=== PATIENT | female | born 1975 | race Caucasian/White ===

== ENCOUNTER → 2022-11-12 13:57 | Outpatient (BNVA) | payer BC, SELFPAY | PROVIDERS: PCP Internal Medicine; Visit Provider Nurse Practitioner Family | DX: Z13.89 Encounter for screening for other disorder (principal) ==

== ENCOUNTER → 2023-02-04 15:08 | Outpatient (BNVA) | payer BC, SELFPAY | PROVIDERS: PCP Internal Medicine; Visit Provider Nurse Practitioner Family | DX: Z13.89 Encounter for screening for other disorder (principal) ==

== ENCOUNTER 2023-06-08 14:34 | Outpatient (AMB) | payer BC, SELFPAY ==
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
[2023-06-08 14:36] VITALS: BP 116/70; BMI 35.9
== END 2023-06-08 15:14 | disposition home or self-care (01) ==
PROVIDERS: Visit Provider Nurse Practitioner Family
DX: G43.109 Migraine with aura, not intractable, without status migrainosus (principal); M54.2 Cervicalgia; R41.89 Other symptoms and signs involving cognitive functions and awareness
CPT/HCPCS: 99214

== ENCOUNTER → 2023-06-08 14:34 | Outpatient (BNVA) | payer BC, SELFPAY | PROVIDERS: Visit Provider Nurse Practitioner Family ==

== ENCOUNTER 2023-12-14 14:24 | Outpatient (AMB) | payer BC, SELFPAY ==
[2023-12-14 14:30] VITALS: BP 124/80; PULSE 56; O2SAT 99; BMI 36.1
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
== END 2023-12-14 15:14 | disposition home or self-care (01) ==
LOC: HO.HSMS 14:24
PROVIDERS: PCP Internal Medicine; Visit Provider Nurse Practitioner Family
DX: G43.109 Migraine with aura, not intractable, without status migrainosus (principal)
CPT/HCPCS: 99213

== ENCOUNTER → 2023-12-14 14:24 | Outpatient (BNVA) | payer BC, SELFPAY | PROVIDERS: PCP Internal Medicine; Visit Provider Nurse Practitioner Family ==

== ENCOUNTER 2024-06-12 14:06 | Outpatient (AMB) | payer BC, SELFPAY ==
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
[2024-06-12 14:20] VITALS: BP 114/72; PULSE 52; O2SAT 98; BMI 37.0
== END 2024-06-12 15:01 | disposition home or self-care (01) ==
PROVIDERS: PCP Internal Medicine; Visit Provider Nurse Practitioner Family
DX: G43.109 Migraine with aura, not intractable, without status migrainosus (principal); M54.2 Cervicalgia
CPT/HCPCS: 99214

== ENCOUNTER → 2024-06-12 14:06 | Outpatient (BNVA) | payer BC, SELFPAY | PROVIDERS: PCP Internal Medicine; Visit Provider Nurse Practitioner Family ==

== ENCOUNTER 2024-10-24 13:31 | Outpatient (AMB) | payer BC, SELFPAY ==
[2024-10-24 13:37] VITALS: BP 118/72; PULSE 50; O2SAT 98; BMI 36.8
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
== END 2024-10-24 14:08 | disposition home or self-care (01) ==
LOC: HO.HSMS 13:31
PROVIDERS: PCP Internal Medicine; Visit Provider Nurse Practitioner Family
DX: G43.109 Migraine with aura, not intractable, without status migrainosus (principal); M54.2 Cervicalgia
CPT/HCPCS: 99214

== ENCOUNTER 2025-04-30 12:52 | Outpatient (AMB) | payer BC, SELFPAY ==
--- NOTE | 2025-04-30 13:05 | A.OFFVIS_ITS ---
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 Pt denies any significant interval medical changes, however pt reports increased stress r/t the recent sudden loss of her mother. In addition, she is still undergoing stress r/t her house repair as well as increased electric bills. Pt reports her migraine attacks have increased, which he attributes to the increased stress and not sleeping as well. Wonders if she should increase her topiramate from 1 to 2 tabs at night. 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 Using Nurtec prn w/ good effect. Baseline headache characteristics: Aura- May have unilateral (either left or right) roberto or colorful orbs w/ loss of peripheral vision. Mod-Severe (Normal headaches is 5/10 pain. Migraine is 10+/10 pain). Bifrontal, biltemporal, upper nose and eye stabbing pain. The pain is stabbing. Photophobia, phonophobia, allodynia, increased neck pain. No usual nausea. 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 H/O tubal ligation Family History Mother Breast cancer Father Lung cancer Hypertension Maternal Grandmother Pancreatic cancer Brother Hodgkin lymphoma Social History Alcohol intake: current Alcohol intake frequency: a few times a month Patient Tobacco Use Status: Never used Tobacco Physical Exam Vital Signs: Last Vital Signs Pulse 53 04/30/25 13:06 BP 128/72 04/30/25 13:06 Pulse Ox 98 04/30/25 13:06 Oxygen Delivery Method Room Air 04/30/25 13:06 BMI result Body Mass Index 37.2 Const General: cooperative and no acute distress Orientation/consciousness: patient oriented x3 Resp Effort & Inspection: normal respiratory effort and able to speak in complete sentences Neuro General: patient oriented x3 Cranial nerves: Yes CN's II-XII intact bilaterally Cognition (Neuro): normal cognition Psych Appearance: grossly normal Mental Status: mental status grossly normal Speech and movement: Normal speech and movement present Affect: normal affect Attitude: cooperative Assessment & Plan Assessment & Plan (1) Migraine with aura: Code(s): G43.109 - Migraine with aura, not intractable, without status migrainosus Category: Medical Qualifiers: Status migrainosus presence: without status migrainosus Intractability: not intractable Qualified Code(s): G43.109 - Migraine with aura, not intractable, without status migrainosus (2) Cervicalgia: Code(s): M54.2 - Cervicalgia Category: Medical Plan For overall headache and cognition management: Continue trying to optimize good self-care and stress management as able Future considerations- neuropsych evaluation, sleep evaluation. ? For acute headache treatment: Continue Rimegepant ODT 75mg qd prn at onset of headache (max 1 tab per day). May take w/ Tylenol. Previous acute migraine medication trials: Sumatriptan- not consistently effective. Acute migraine medication contraindications: NSAIDS d/t chronic anticoagulation. Triptans d/t HTN, HLD and Aortic stenosis. ? For headache prevention medication: Continue OTC Riboflavin 400mg qam. Continue OTC Magnesium 400mg qhs- may hold for loose stools. Increase Topiramate from 25 qhs to 50mg qhs. Previous migraine prevention medication trials: On Metoprolol for HTN. Migraine prevention medication contraindications: None at this time. ? Monitor cervicalgia: Continue to monitor. Future considerations: PT. ? f/u in 6 months or sooner prn Medications: Changed From topiramate 25 - 50 mg (1 - 2 x 25 mg) PO BEDTIME 30 days 60 tabs 6RF To topiramate 50 mg (2 x 25 mg) PO BEDTIME 60 tabs 6RF 30 days Coding Level of Care Code Est Pt Level 4 (18021) Diagnoses Migraine with aura and without status migrainosus, not intractable G43.109 Status migrainosus presence: without status migrainosus Intractability: not intractable Cervicalgia M54.2
[2025-04-30 13:06] VITALS: BP 128/72; PULSE 53; O2SAT 98; BMI 37.2
--- OUTSIDE RECORDS SUMMARY | 2025-04-30 13:54 | XMS_ITS | Clinical Summary ---
Author Organization [facility] Address [address] [place] [phone] Phone Care Team Providers Care Hydrator Operator Name Role Phone Carla Hannah MD Primary Care Provider [phone] Allergies No known active allergies Medications aspirin 81 MG EC tablet 1 tablet Active atorvastatin (LIPITOR) 40 MG tablet take 1 tablet by mouth once daily 04/14/20 18 Active escitalopram oxalate (LEXAPRO) 20 MG tablet Take 20 mg by mouth. Active levonorgestrel (MIRENA) 20 mcg/24 hr (5 years) intrauterine device by Intrauterine route. Active metFORMIN (GLUCOPHAGE) 500 MG tablet TAKE 1 TABLET BY MOUTH ONCE DAILY WITH BREAKFAST 04/14/20 18 Active metoprolol succinate (TOPROL-XL) 25 MG 24 hr tablet TAKE 1 TABLET BY MOUTH ONCE A DAY 06/28/20 17 Active OXcarbazepine (TRILEPTAL) 300 MG tablet Take 300 mg by mouth. Active SENNA, WITH SUGAR, ORAL 2 tablets. Active biotin 300 mcg Tab Take 1,000 mcg by mouth daily. Active cyanocobalamin (VIT B-12) 1000 MCG tablet Take 100 mcg by mouth daily. Active warfarin (COUMADIN) 2 MG tablet Maintenance plan:6 mg every Tue; 8 mg all other days 01/01/20 21 Active amoxicillin (AMOXIL) 500 MG capsule Take 2,000 mg by mouth. 05/19/20 22 Active ferrous furamate 324 mg (106 mg elemental) Tab Take 1 tablet by mouth daily. Active topiramate (TOPAMAX) 25 MG capsule Take 25 mg by mouth daily. Active magnesium oxide 250 mg (150 mg elemental) Tab Take 250 mg by mouth daily. Active riboflavin, vitamin B2, (,VITAMIN B-2,) 25 mg Tab Take 100 mg by mouth daily. Active NURTEC ODT 75 mg tablet TAKE 1 TABLET BY MOUTH EVERY OTHER DAY AND NEEDED FOR MIGRAINE 07/17/20 23 Active dextromethorphan (DELSYM) 30 mg/5 mL liquid Take 10 mL (60 mg total) by mouth daily. 89 mL 09/16/20 24 Active flunisolide 25 mcg (0.025 %) [place] 2 sprays by Nasal route. 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 Chronic anticoagulation 07/31/2017 Encounters Date Type Department Care Team Description 04/24/2025 2:40 PM EDT Office Visit [facility] [address] [place] [address] [place] [address] Carla Hannah MD Aortic valve disorder [I35.9] (Primary Dx); Aortic valve replaced; Chronic anticoagulation 03/27/2025 1:20 PM EDT Office Visit [facility] [address] [place] [address] [place] [address] Carla Hannah MD Aortic valve disorder [I35.9] (Primary Dx); Aortic valve replaced; Chronic anticoagulation 03/07/2025 Telephone [facility] Clinic [address] [place] [phone] Arminda Almeida, RN Appointment 02/27/2025 1:20 PM EDT Office Visit [facility] [address] [place] [address] [place] [address] Carla Hannah MD Aortic valve disorder [I35.9] (Primary Dx); Aortic valve replaced; Chronic anticoagulation 02/20/2025 Telephone [facility] [address] [place] [address] [place] [address] Arminda Almeida, RN from Last 3 Months Family History Medical History Relation Comments Cancer Father 2 Hypertension Father 2 Cancer Maternal Grandmother 2 Cancer Mother 2 Cancer Sibling 2 Relation Status Comments Father 1 Father 2 Maternal Grandmother 1 Maternal Grandmother 2 Mother 1 Mother 2 Sibling 1 Sibling 2 Social History Tobacco Use Types Packs/Day Years Used Date Smoking Tobacco: Never Smokeless Tobacco: Never Alcohol Use Standard Drinks/Week Comments No 0 (1 standard drink = 0.6 oz pur e alcohol) Education Answer Date Recorded Are you interested in more education? Not on job e 02/08/2023 Are you concerned about learning? Not on file 02/08/2023 No 02/08/2023 No 02/08/2023 Digital Access Answer Date Recorded No 03/02/2023 No 03/02/2023 Reliable internet access at home? Not on file 03/02/2023 Device with a working camera? Not on file Intimate Partner Violence Answer Date R ecorded Are you denied basic needs s uch as food, clothing, or medical care? No 09/16/2024 In the past 12 months have y ou been in a relationship with a person who hurts, threatens, or tries to control you? No 09/16/2024 Are you denied basic needs s uch as food, clothing, or medical care? No 09/16/2024 In the past 12 months have y ou been in a relationship with a person who hurts, threatens, or tries to control you? No 09/16/2024 Comments No Sex and Gender Information Value Date Recorded Sex Assigned at Female 10/12/2018 1:40 PM EST Legal Sex Female 5:20 PM EST Gender Identity Female 10/12/2018 1:40 PM EST Sexual Orientation Straight 10/12/2018 1: 40 PM EST Last Filed Vital Signs Vital Sign Reading Time Taken Comments Blood Pressure 133/75 09/16/2024 10:47 PM EST Pulse 58 09/16/2024 10:47 PM EST Temperature 36.6 C (97.9 F) 09/16/2024 10:47 PM EST Respiratory Rate 18 09/16/2024 10:47 PM EST Oxygen Saturation 99% 09/16/2024 10:47 PM EST Inhaled Oxygen Concentration - - Weight 82.1 kg (181 lb) 09/16/2024 4:17 PM EST Height 149.9 cm (4' 11 ) 09/16/2024 4:17 PM EST Body Mass Index 36.56 09/16/2024 4:17 PM EST Plan of Treatment Upcoming Encounters Date Type Department Care Team (Late st Contact Info) Description 05/21/2025 1:40 PM EDT Office Visit [facility] Clinic [address] [place] [address] Carla Hannah MD [address] [place] [address] Health Maintenance Due Date Last Done Comments DEPRESSION SCREENING 1985 HEPATITIS C SCREENING 1991 HIV ONE-TIME SCREENING (18-65 YEARS) 1991 PAP SMEAR 10/15/2013 10/15/2010 COLOGUARD 2018 COLONOSCOPY 2018 COLORECTAL CANCER SCREENING 2018 FIT TEST 2018 FOBT 2018 SIGMOIDOSCOPY 2018 VIRTUAL COLONOSCOPY 2018 Adult Td,Tdap Booster 06/16/2021 06/16/2011 PNEUMOCOCCAL VACCINES (50+ years) (1 of 1 - PCV) 2023 ZOSTER VACCINES (1 of 2) 2023 COVID-19 VACCINE (3 - 2023- season) 2024 11/02/2020, 10/12/2020 CREATININE LEVEL 09/16/2025 09/16/2024, 10/12/2018 MAMMOGRAM 11/14/2025 11/14/2023, 10/2022, 11/05/2021, Additional history exists SCREENING FOR DIABETES 09/16/2027 09/16/2024 LIPID PANEL 03/28/2030 03/28/2025, 08/11, 08/10/2023, Additional history exists SMOKING STATUS SCREENING (Once After 26 Yrs) Completed 10/18/2023 HEPATITIS A VACCINES Aged Out No long er eligible based on patient's age to complete this topic HIB VACCINES Aged Out No longer eligi ble based on patient's age to complete this topic MENINGOCOCCAL VACCINES (ACWY) Aged Out No longer eligible based on patient's age to complete this topic MENINGOCOCCAL VACCINES (B) Aged Out N o longer eligible based on patient's age to complete this topic Medical Devices Not on file Procedures Procedure Name Priority Date/Time Associated Diagnosis Comments POCT INR Routine 04/24/2025 2:43 PM EDT POCT INR Routine 03/27/2025 1:23 PM EDT POCT INR Routine 02/27/2025 1:21 PM EDT BASIC METABOLIC PANEL STAT 09/16/2024 4:44 PM EST from Last 3 Months or Most Recently Relevant to Health Maintenance Results * (ABNORMAL) Poct INR (04/24/2025 2:43 PM EDT) Only the most recent of3 resultswithin the time period is included. INR 2.0(H) 0.86 - 1.17 [facility] Comment:Therapeutic Range 2. 0-3.5 04/24/2025 2:43 PM EDT 04/24/2025 2:44 PM EDT Carla Hannah MD POINT OF CARE TEST ORDERABLES nal Result [facility] [address] [place] [address] * (ABNORMAL) Basic metabolic panel (09/16/2024 4:44 PM EST) Pathologist [facility] [place] SODIUM 138 133 - 146 mmol/L [facility] CHLORIDE 105 96 - 108 mmol/L [facility] POTASSIUM 4.4 3.3 - 5.1 mmol/L [facility] CO2 27 21 - 35 mmol/L [facility] BUN 15 6 - 19 mg/dL [facility] CREATININE 0.70 0.5 - 1.5 mg/dL [facility] GLUCOSE 119(H) 70 - 99 mg/dL [facility] CALCIUM 8.9 8.4 - 10.3 mg/dL [facility] EGFR 105 >59 mL/min/1.7 3m2 [facility] Comment:Estimated glomerular filtration rate calculated using the CKD-EPI refit equation. ANION GAP 10 10 - 20 mmol/L [facility] Blood 09/16/2024 4:44 PM EST 09/16/2024 4:47 PM EST us Curz Marin MD LAB BLOOD ORDERABLES Final Resul t Performing Organization Address City/State/[facility] Co de Phone Number [address] [address] from Last 3 Months or Most Recently Relevant to Health Maintenance Insurance OUT OF [facility] POS BLUE CROSS OUT OF STATE POS CROSS OUT OF STATE POS BLUE CROSS OUT OF STATE POS Care Teams Hydrator Operator Relationship Specialty Start Date End Date Carla Hannah MD [address] [place] [address] PCP - General Internal Medicine 07/13/22 Additional Source Comments The information contained in this document represents components of the legal health record. It is not the complete legal health record.[facility]
--- OUTSIDE RECORDS SUMMARY | 2025-04-30 13:54 | XMS_ITS | Clinical Summary ---
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 Active riboflavin (VITAMIN B2) 400 mg tablet Take 1 tablet (400 mg total) by mouth 1 (one) time each day. Active topiramate (TOPAMAX) 25 mg tablet TAKE 1 TO 2 TABLETS BY MOUTH AT BEDTIME 3 Active magnesium oxide 250 mg magnesium tablet Take 1 tablet (250 mg total) by mouth. Active ferrous fumarate 324 mg (106 mg iron) tablet Take 1 tablet by mouth 1 (one) time each day. Active amoxicillin (AMOXIL) 500 mg capsule Take 4 Capsules by mouth Once. She gets these through her dentist's office prior to procedures. 2 Active escitalopram (LEXAPRO) 20 mg tablet Take 1 tablet (20 mg total) by mouth 1 (one) time each day. Active cyanocobalamin (VITAMIN B-12) 100 mcg tablet Take 10 tablets (1,000 mcg total) by mouth 1 (one) time each day. Active levonorgestreL (MIRENA) 21 mcg/24hr (up to 8 yrs) 52 mg IUD by intrauterine route. Active aspirin 81 mg chewable tablet Chew 1 tablet (81 mg total) 1 (one) time each day. Active sennosides (SENNA ORAL) 2 Tabs by Does not apply route at bedtime. Active Nurtec 75 mg dispersible tablet Take 1 tablet (75 mg total) by mouth 1 (one) time each day if needed. Active methocarbamoL (ROBAXIN) 500 mg tablet Take 1 tablet (500 mg total) by mouth 3 (three) times a day. 4 Active biotin 1,000 mcg tablet,chewable Chew 1,000 mcg 1 (one) time each day. 4 Active metFORMIN (GLUCOPHAGE) 500 mg tablet TAKE 1 TAB BY MOUTH EVERY DAY WITH BREAKFAST. 90 tablet 1 5 Active metoprolol succinate (TOPROL-XL) 25 mg 24 hr tabletIndicatio ns:Presence of prosthetic heart valve TAKE 1 TABLET BY MOUTH EVERY DAY 90 tablet 5 Active warfarin (COUMADIN) 2 mg tabletIndicatio ns:halfway (current) use of anticoagulants, Presence of prosthetic heart valve TAKE 4-5 TABLETS BY MOUTH DAILY DIRECTED BY THE CLINIC, MAY CAUSE HEAVY BLEEDING. TAKE AT SAME TIME EVERY DAY. DO NOT CHANGE DIETARY HABITS. 360 tablet 1 5 Active atorvastatin (LIPITOR) 40 mg tablet TAKE 1 TABLET BY MOUTH EVERY DAY 90 tablet 1 5 Active Active Problems Problem Noted Date Diagnosed Date Status post aortic aneurysm repair 03/28/2025 H/O mechanical aortic valve replacement 03/28/20 25 Assessment & Plan (03/28/2025 11:00 AM EDT): She is utilizing the warfarin with good effect. Will need to remain on this lifetime. Denies any abnormal bleeding. Sounds good on exam. Will update echocardiogram. Hypertension 03/28/2025 Assessment & Plan (03/28/2025 10:59 AM EDT): Well-controlled the appointment today. We are reducing the metoprolol dosage to 12.5 mg p.o. daily because of the patient's increase in dizziness. Dizziness 03/28/2025 Assessment & Plan (03/28/2025 11:00 AM EDT): She is reporting an increase in dizziness especially after changing positions. 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 Her heart rate is 52 at the appointment today, I am going to be reducing her metoprolol dosage down to 12.5 mg p.o. daily. I would like her to reach out in a week to let us know if she is having any decrease in dizziness symptoms. Of note she also has history of migraines and dizziness and is going to be seeing her neurologist within the next month. 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 She plans to go get her lipid profile updated today as ordered by her PCP team. Continue statin Assessment & Plan (03/28/2025 10:58 AM EDT): Recently well-controlled. Patient is utilizing 40 mg of atorvastatin. Her PCP has put in labs, I would like her LDL to be under 100. Migraine 07/30/2024 PCOS (polycystic ovarian syndrome) 07/30/2024 TIA (transient ischemic attack) 07/30/2024 Overview (07/30/2024): May 2016 she has bladder surgery and was bridged to Lovenox and off AC for <36 hours, but she had a TIA with resolution of symptoms after 24 hours. Weight gain 07/30/2024 Snoring 01/04/2022 Overview (07/30/2024): 12/2021 Home Sleep Study did not reveal sleep apnea or nocturnal hypoxia. COVID-19 virus infection 05/04/2020 Reactive airway disease 05/02/2018 Constipation 07/01/2011 Iron deficiency anemia 06/22/2011 Encounters Date Type Department Care Team Description 03/28/2025 10:40 AM EDT Office Visit [facility] [address] [facility] [address] [place] [id number] Raghu Leal NP Hyperlipidemia, unspecified hyperlipidemia type (Primary Dx); Status post aortic aneurysm repair; H/O mechanical aortic valve replacement; Hypertension, unspecified type; Dizziness 03/01/2025 2:30 PM EDT Office Visit Adult Medicine [address] [phone] Jailene Alonso MD PE (physical exam), annual (Primary Dx); Need for vaccination against Streptococcus pneumoniae; Tongue lesion from Last 3 Months Immunizations Name Administration Dates Next Due COVID-19 (Moderna/Spikevax) 12yo and older 07/16/2022 Hepatitis B Pediatric (Enger ix B; Recombivax HB) to less than 20 yo 05/29/2004,11/29/2003,11/01/2003 Influenza Quadravalent, MDCK , 0.5ml, preservative free (Flucelvax) 6mo and older 07/12/2023,07/23/2022 Influenza trivalent, 0.5mL, preservative free (Fluarix; FluLaval; Fluzone) ages 6mo and older (Afluria) 3 years and older 07/07/2021,07/07/2020,06/06/2019,07/04,06/30/2017,06/15/2016,07/24/2014 ,07/24/2013,07/26/2012,06/16/2011 MMR, measles mumps and rubel la Live (Priorix; M-M-R II) 12mo and older 11/01/2003 PPD Test 10/27/2016 Pfizer Covid-19 Bivalent, Or iginal + Ba.1 (Non-US Trademark [employer] Bivalent) 07/16/2022 Pneumococcal conjugate 20 va lent (Prevnar 20, PCV 20) 2mo and older 03/01/2025 Pneumococcal polysaccharide 23 valent (Pneumovax 23) 2yo and older 06/16/2011 TD, Adsorbed, Preservative Free 11/01/2003 Td Tetanus diptheria (Tdvax) 7yo and older 11/20/2021 Tdap Tetanus diptheria acell ular pertussis (Boostrix; Adacel) 7yo and older 06/16/2011 Zoster recombinant (Shingrix ) 19yo and older 12/09/2023,09/13/2023 Surgical History Surgery Date Site/Laterality Comments OTHER SURGICAL HISTORY 02/2011 PROCEDURE: MAMMOGRAM; COMMENT: 09/2014 TUBAL LIGATION 2001 PROCEDURE: HISTORICAL TUBAL LIGATION OTHER SURGICAL HISTORY 02/17 PROCEDURE: NUCLEAR STRESS TEST; COMMENT: negative OTHER SURGICAL HISTORY 09/27/2013 PROCEDURE: REPLACE AORTIC VALVE OPEN TRANSTHORACIC APPROACH; COMMENT: Dr Pierre CERVICAL BIOPSY W/ LOOP ELECTRODE EXCISION PROCEDURE: UT CONIZATION CERVIX W/WO D&C RPR ELTRD EXC; COMMENT: about age 19 OTHER SURGICAL HISTORY 05/2016 PROCEDURE: UT LAPAROSCOPY SLING OPERATION STRESS INCONT; COMMENT: Mesh sling; Dr Coughlin Medical History Medical History Date Comments Aortic stenosis DX:Aortic stenos is; COMMENT: congenital, s/p AVR 09/21 Depression DX:Depression; C OMMENT: service 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 Anxiety DX:Anxiety Anemia DX:Anemia; COMME NT: iron def in past PCOS (polycystic ovarian syndrome) DX:PCOS (polycystic ovarian syndrome) Eczema DX:Eczema Abnormal Pap smear of cervix DX: Abnormal Pap smear of cervix; COMMENT: age 18 Migraine DX:Migraine; COM MENT: rare since repair of heart Hyperlipidemia DX:Hyperlipidemi a Cervicocranial syndrome DX:Cervi cocranial syndrome Ectopic kidney DX:Ectopic kidne y; COMMENT: left Weight gain DX:Weight gain Chronic constipation DX:Chronic constipation Stress incontinence DX:Stress in continence; COMMENT: resolved with sling TIA (transient ischemic attack) DX:TIA (transient ischemic attack); COMMENT: May 2016 she has bladder surgery and was bridged to Lovenox and off AC for <36 hours, but she had a TIA with resolution of symptoms after 24 hours. Family History Medical History Relation Name Comments Hypertension Father lung cancer Lung cancer Father smoker Other: pancreatic cancer Maternal Grandmother Breast cancer Mother 40 premenopausal; comprehensive BRCA negative Colon cancer Neg Hx Ovarian cancer Neg Hx Pancreatic cancer Neg Hx Prostate cancer Neg Hx Uterine cancer Neg Hx Relation Name Status Comments Brother 1 Alive hodgkins Brother 2 Alive Father lung ca Maternal Grandfather unknown Maternal Grandmother pancrea s Mother 40 breast ca, rt b reast, pre menopausal, Paternal Grandfather unknown Paternal Grandmother unknown Son 1 Alive Son 2 Alive Son 3 Alive Social History Tobacco Use Types Packs/Day Years Used Date Smoking Tobacco: Never Passive Smoke Exposure: Past Smokeless Tobacco: Never Alcohol Use Standard Drinks/Week Comments Yes 0.8 (1 standard drink = 0.6 oz p ure alcohol) Housing Instability Answer Date Recorde d Are you worried that in the next 2 months you may not have stable housing? No 03/01/2025 Food Access & Nutrition Answer Date Rec orded Do you have access to a vari ety of food including fruits and vegetables? No 03/01/2025 Health Literacy Answer Date Recorded How often do you need to hav e someone help you when you read instructions, pamphlets, or other written material from your doctor or pharmacy? Never 03/01/2025 Caregiver: How often do you need to have someone help you when you read instructions, pamphlets, or other written material from your doctor or pharmacy? Not on file 03/01/2025 Financial Risk Answer Date Recorded How hard is it for you to pa y for the very basics like food, housing, medical care, and air conditioning / heating? Not very hard 03/01/2025 Transportation Answer Date Recorded Has the lack of transportati on kept you from meetings, work, or from getting things needed for daily living? No Has the lack of transportati on kept you from medical appointments or from getting medications? No 03/01/2025 Social Isolation Answer Date Recorded How often do you feel lonely or isolated from th ose around you? Never 03/01/2025 Food Risk Answer Date Recorded Within the past 12 months we worried whether our food would run out before we got money to buy more. Never true 03/01/2025 Within the past 12 months th e food we bought just didn't last and we didn't have money to get more. Never true 03/01/2025 Dependent Care Answer Date Recorded Do you need help finding or paying for care for your loved ones. For example, residential child care counselor or elderly care for an older adult? No 03/01/2025 Education Answer Date Recorded Do you think completing more education or training, like finishing a GED, going to college, or learning a trade, would be helpful for you? No 03/01/2025 Employment and Income Answer Date Recor ded During the last four weeks, have you been actively looking for work? No 03/01/2025 Living Situation Answer Date Recorded What is your living situation? 0 03/01/2025 Comments No Sex and Gender Information Value Date Recorded Sex Assigned at Not on file Legal Sex Female 6:39 AM EST Gender Identity Not on file Sexual Orientation Not on file Obstetrics History Last Filed Vital Signs Vital Sign Reading Time Taken Comments Blood Pressure 110/60 03/28/2025 10:34 AM EDT Pulse 52 03/28/2025 10:34 AM EDT Temperature 36.6 C (97.8 F) 03/01/2025 2:27 PM EDT Respiratory Rate 14 03/01/2025 2:27 PM EDT Oxygen Saturation 97% 03/28/2025 10:34 AM EDT Inhaled Oxygen Concentration - - Weight 83.6 kg (184 lb 6.4 oz) 03/28/2025 10:34 AM EDT Height 149.9 cm (4' 11 ) 03/28/2025 10:34 AM EDT Body Mass Index 37.24 03/28/2025 10:34 AM EDT Plan of Treatment Upcoming Encounters Date Type Department Care Team (Late st Contact Info) Description 05/01/2025 1:50 PM EDT Appointment Radiology Department - [address] [phone] 07/03/2025 2:30 PM EDT Office Visit [facility] [address] [phone] Jailene Alonso MD [address] [place] [address] 07/09/2025 12:30 PM EDT Ancillary Procedure [facility] - [address] [place] [address] Health Maintenance Due Date Last Done Comments Hepatitis B Vaccines (1 of 3 - 19+ 3-dose series) 1992 05/29/2004, 11/29/2003, 11/01/2003 Influenza Vaccine (#1) 2025 4, 07/12/2023, 07/23/2022, Additional history exists Breast Cancer Screening 11/14/2025 11/14/19 24, 11/10/2022, 11/05/2021, Additional history exists Social Influencers of Health Screening 03/01/2026 03/01/2025 Hypertension/CHF/CAD Annual BMP Blood Test 03/28/2026 03/28/2025, 01/30/2024 Colorectal Cancer Screening: FIT-DNA (Cologuard) 08/12/2026 08/12/2023, 08/11/2023 Cervical Cancer Screening: HPV 05/17/2027 05/17/2022 Cholesterol Screening (Lipid Panel) 03/28/2030 03/28/2025, 08/29/2024, 08/10/2023 DTaP,Tdap,and Td Vaccines (3 - Td or Tdap) 11/20/2031 11/20/2021, 06/16/2011, 11/01/2003 MMR Vaccines Aged Out 11/01/2003 No longer eligi ble based on patient's age to complete this topic HIV Screening Completed 09/09/2014 Hepatitis C Screening Completed 09/09/2014 Zoster Vaccines Completed 12/09/2023, 09/13/2023 COVID-19 Vaccine Completed 07/16/2024, 02/2023, 07/16/2022, Additional history exists Depression Screening Completed 03/01/2025 Pneumococcal Vaccine: 50+ Years Completed 03/01/2025, 06/16/2011 HIB Vaccines Aged Out No longer eligi ble based on patient's age to complete this topic HPV Vaccines Aged Out No longer eligi ble based on patient's age to complete this topic Hepatitis A Vaccines Aged Out No long er eligible based on patient's age to complete this topic IPV Vaccines Aged Out No longer eligi ble based on patient's age to complete this topic Meningococcal ACWY Vaccine Aged Out N o longer eligible based on patient's age to complete this topic Meningococcal B Vaccine Aged Out No l onger eligible based on patient's age to complete this topic RSV Immunization Patients Under 20 months Aged Out No longer eligible based on patient's age to complete this topic Varicella Vaccines Aged Out No longer eligible based on patient's age to complete this topic Procedures Procedure Name Priority Date/Time Associated Diagnosis Comments CBC WITH AUTO DIFFERENTIAL Routine 03/28/2025 11:27 AM EDT PE (physical exam), annual CBC AND DIFFERENTIAL Routine 03/28/2025 11:27 AM EDT PE (physical exam), annual COMPREHENSIVE METABOLIC PANEL Routine 03/28/2025 11:27 AM EDT PE (physical exam), annual LIPID PANEL WITH REFLEX TO DIRECT LDL Routine 03/28/2025 11:27 AM EDT PE (physical exam), annual HEMOGLOBIN A1C Routine 03/28/2025 11:27 AM EDT PE (physical exam), annual ECG 12-LEAD Routine 03/28/2025 11:00 AM EDT Status post aortic aneurysm repair SCREENING MAMMOGRAPHY BI 2-VIEW BREAST INC CAD Routine 11/14/2023 1:48 PM EST Encounter for screening mammogram for malignant neoplasm of breast EXTERNAL COLOGUARD (FIT-DNA) REPORT Routine 08/12/2023 4:06 PM EDT HM HPV Routine 05/17/2022 HEPATITIS C SCREENING Routine 09/09/2014 HIV SCREENING Routine 09/09/2014 from Last 3 Months or Most Recently Relevant to Health Maintenance Results * Lipid panel with reflex to direct LDL (03/28/2025 11:27 AM EDT) Pathologist [facility] Cholesterol 161 0 - 200 mg/dL LAB CHEMISTRY METHOD 03/28/2025 3:51 PM EDT [facility] Triglycerides 67 0 - 150 mg/dL LAB CHEMISTRY METHOD 03/28/2025 3:51 PM EDT [facility] HDL 67 >=40 mg/dL LAB CHEMISTRY METHOD 03/28/2025 3:51 PM EDT [facility] LDL Calculated 81 0 - 100 mg/dL LAB CHEMISTRY METHOD 03/28/2025 3:51 PM EDT [facility] VLDL Cholesterol Albino 13.4 mg/dL LAB CHEMISTRY METHOD 03/28/2025 3:51 PM EDT [facility] Non HDL Chol. (LDL+VLDL) 94 <145 mg/dL LAB CHEMISTRY METHOD 03/28/2025 3:51 PM EDT [facility] Chol/HDL Ratio 2.4 0.0 - 4.4 LAB CHEMISTRY METHOD 03/28/2025 3:51 PM EDT [facility] Blood Venous blood specimen / Unknown Venipuncture / Unknown 03/28/2025 11:27 AM EDT 03/28/2025 11:27 AM EDT us Jailene Alonso MD LAB BLOOD ORDERABLES Final Resul t [facility] [address] [place] [address], * (ABNORMAL) CBC auto differential (03/28/2025 11:27 AM EDT) [facility] WBC 7.1 4.8 - 10.8 K/mcL LAB HEMETOLOGY METHOD 03/28/2025 3:21 PM EDT [facility] RBC 4.30 3.80 - 4.80 M/mcL LAB HEMETOLOGY METHOD 03/28/2025 3:21 PM EDT [facility] Hemoglobin 12.6 11.5 - 16.0 g/dL LAB HEMETOLOGY METHOD 03/28/2025 3:21 PM EDT [facility] Hematocrit 40.7 35.0 - 47.0 % LAB HEMETOLOGY METHOD 03/28/2025 3:21 PM [facility] MCV 94.7 79.0 - 98.0 FL LAB HEMETOLOGY METHOD [facility]25 [facility] MCH 29.3 27.0 - 32.0 pcg LAB HEMETOLOGY METHOD 03/28/2025 3:21 PM [facility] MCHC 31.0(L) 32.0 - 37.0 g/dL LAB HEMETOLOGY METHOD 03/28/2025 3:21 PM [facility] RDW 13.9 11.0 - 15.0 % LAB HEMETOLOGY METHOD 03/28/2025 3:21 PM [facility] Platelets 297 130 - 400 K/mcL LAB HEMETOLOGY METHOD 03/28/2025 3:21 PM [facility] MPV 11.7(H) 7.0 - 11.0 FL LAB HEMETOLOGY METHOD 03/28/2025 3:21 PM [facility] NRBC 0.0 <1.0 % LAB HEMETOLOGY METHOD 03/28/2025 3:21 PM [facility] NRBC Absolute 0.00 <0.10 K/mcL LAB HEMETOLOGY METHOD 03/28/2025 3:21 PM [facility] Neutrophils Relative 60.0 % LAB HEMETOLOGY METHOD 03/28/2025 3:21 PM [facility] Lymphocytes Relative 25.3 % LAB HEMETOLOGY METHOD 03/28/2025 3:21 PM [facility] Monocytes Relative 10.4 % LAB HEMETOLOGY METHOD 03/28/2025 3:21 PM EDT [facility] Eosinophils Relative 3.2 % LAB HEMETOLOGY METHOD 03/28/2025 3:21 PM EDT [facility] Basophils Relative 0.7 % LAB HEMETOLOGY METHOD 03/28/2025 3:21 PM [facility] Immature Granulocytes Relative 0.4 % LAB HEMETOLOGY METHOD 03/28/2025 3:21 PM EDT [facility] Neutrophils Absolute 4.26 1.50 - 7.00 K/mcL LAB HEMETOLOGY METHOD 03/28/2025 3:21 PM EDT [facility] Lymphocytes Absolute 1.80 1.00 - 5.00 K/mcL LAB HEMETOLOGY METHOD 03/28/2025 3:21 PM [facility] Monocytes Absolute 0.74 0.20 - 1.00 K/mcL LAB HEMETOLOGY METHOD 03/28/2025 3:21 PM EDT [facility] Eosinophils Absolute 0.23 0.00 - 0.50 K/mcL LAB HEMETOLOGY METHOD 03/28/2025 3:21 PM EDT [facility] Basophils Absolute 0.05 0.00 - 0.20 K/mcL LAB HEMETOLOGY METHOD 03/28/2025 3:21 PM T [facility] Immature Granulocytes Absolute 0.03 0.00 - 0.03 K/mcL LAB HEMETOLOGY METHOD 03/28/2025 3:21 PM T [facility] Blood Venous blood specimen / Unknown Venipuncture / Unknown 03/28/2025 11:27 AM EDT 03/28/2025 11:27 AM EDT us Jailene Alonso MD LAB BLOOD ORDERABLES Final Resul t [facility] [address] [place] [address], [place] [phone] * Hemoglobin A1c (03/28/2025 11:27 AM EDT) [facility] Hemoglobin A1C 5.6 <6.5 % LAB CHEMISTRY METHOD 03/28/2025 8:35 PM T [facility] Mean Bld Glu Estim. 114 mg/dL LAB CHEMISTRY METHOD 03/28/2025 8:35 PM [facility] Blood Venous blood specimen / Unknown Venipuncture / Unknown 03/28/2025 11:27 AM EDT 03/28/2025 11:27 AM EDT Jailene Alonso MD LAB BLOOD ORDERABLES Final Resul t [facility] [address] [place] [address], * Comprehensive metabolic panel (03/28/2025 11:27 AM EDT) [facility] Sodium 137 133 - 145 mmol/L LAB CHEMISTRY METHOD 03/28/2025 3:51 PM [facility] Potassium 4.3 3.5 - 5.5 mmol/L LAB CHEMISTRY METHOD 03/28/2025 3:51 PM [facility] Chloride 107 96 - 110 mmol/L LAB CHEMISTRY METHOD 03/28/2025 3:51 PM [facility] CO2 26 21 - 32 mmol/L LAB CHEMISTRY METHOD 03/28/2025 3:51 PM [facility] Anion Gap 4 3 - 11 LAB CHEMISTRY METHOD 03/28/2025 3:51 PM [facility] Glucose 83 70 - 100 mg/dL LAB CHEMISTRY METHOD 03/28/2025 3:51 PM [facility] BUN 15 5 - 25 mg/dL LAB CHEMISTRY METHOD 03/28/2025 3:51 PM [facility] Creatinine 0.72 0.50 - 1.10 mg/dL LAB CHEMISTRY METHOD 03/28/2025 3:51 PM [facility] eGFR 101 >=60 mL/min/1. 73m2 LAB CHEMISTRY METHOD 03/28/2025 3:51 PM [facility] Comment:Calculation based on the Chronic Kidney Disease Epidemiology Collaboration (CKD-EPI) equation refit without adjustment for race. BUN/Creatinine Ratio 20.8 LAB CHEMISTRY METHOD 03/28/2025 3:51 PM [facility] Calcium 9.0 8.5 - 10.5 mg/dL LAB CHEMISTRY METHOD 03/28/2025 3:51 PM [facility] AST (SGOT) 15 10 - 42 unit/L LAB CHEMISTRY METHOD 03/28/2025 3:51 PM [facility] ALT (SGPT) 18 10 - 60 unit/L LAB CHEMISTRY METHOD 03/28/2025 3:51 PM [facility] Alkaline Phosphatase 88 42 - 121 unit/L LAB CHEMISTRY METHOD 03/28/2025 3:51 PM [facility] Total Protein 7.0 6.0 - 8.0 g/dL LAB CHEMISTRY METHOD 03/28/2025 3:51 PM [facility] Albumin 3.8 3.2 - 5.0 g/dL LAB CHEMISTRY METHOD 03/28/2025 3:51 PM [facility] Total Bilirubin 0.3 0.0 - 1.4 mg/dL LAB CHEMISTRY METHOD 03/28/2025 3:51 PM [facility] Blood Venous blood specimen / Unknown Venipuncture / Unknown 03/28/2025 11:27 AM EDT 03/28/2025 11:27 AM EDT us Jailene Alonso MD LAB BLOOD ORDERABLES Final Resul t [facility] [address] [place] [address], [place] [phone] * ECG 12 lead (03/28/2025 11:00 AM EDT) Ventricular Rate ECG 52 BPM GEMUSE Atrial Rate 52 BPM GEMUSE P-R Interval 204 ms GEMUSE QRS Duration 94 ms GEMUSE Q-T Interval 452 ms GEMUSE QTc 420 ms GEMUSE P Wave Duff 42 degrees GEMUSE R Duff 79 degrees GEMUSE T Duff 83 degrees GEMUSE ECG Interpretation Sinus bradycardia with Premature atrial complexes Otherwise normal ECG Confirmed by LIZBET VELIZ ([id number]) on 04/18/2025 3:12:48 PM GEMUSE 03/28/2025 10:3 9 AM EDT 04/18/2025 3:12 PM EDT Raghu Leal NP ECG ORDERABLES Edited Result - Final GEMUSE * SCREENING MAMMOGRAPHY BI 2-VIEW BREAST INC CAD (11/14/2023 1:48 PM EST) Anatomical Region Laterality Modality Radiographic Abi ging 11/10/2022 1:48 PM EST Narrative 11/15/2023 2:28 PM EST This is a summary report. The complete report is available in the patient's medical record. If you cannot access the medical record, please contact the sending organization for a detailed fax or copy. Full field digital screening 2D andC views tomosynthesis mammography, reviewed with CAD and compared to previous. The breast tissue is heterogeneously dense, limiting sensitivity. No suspicious mass, architectural distortion or suspicious calcifications are identified. IMPRESSION: : Dense breast tissue, limiting the sensitivity of mammography. No mammographic evidence of malignancy. BIRADS 1-Negative; N. 5 year breast cancer risk assessment 1.8 % Lifetime breast cancer risk assessment 16.0 % Breast cancer risk category Moderate (15% - 20%) Procedure Note Archana Ordonez MD - 05/28/2024 This is a summary report. The complete report is available in thepatient's medical record. If you cannot access the medical record, pleasecontact the sending organization for a detailed fax or copy. Full field digital screening 2D andC views tomosynthesis mammography,reviewed with CAD and compared to previous. The breast tissue isheterogeneously dense, limiting sensitivity. No suspicious mass,architectural distortion or suspicious calcifications are identified. IMPRESSION: : Dense breast tissue, limiting the sensitivity of mammography. Nomammographic evidence of malignancy. BIRADS 1-Negative; N. 5 year breast cancer risk assessment 1.8 % Lifetime breast cancer risk assessment 16.0 % Breast cancer risk category Moderate (15% - 20%) Carla Hannah MD IMG XR PROCEDURES Final Result * External Cologuard (FIT-DNA) Report (08/12/2023 4:06 PM EDT) Result [facility] Fan Herman MD LAB BODY FLUIDS AND STOOLS ORDER JINNY Final Result * Cervical Cancer Screening: HPV (05/17/2022) Pathologist [facility] Cervical Cancer Screening: HPV negative, abstracted Result [facility] Historical Provider HEALTH MAINTENANCE Final Result * HIV Screening (09/09/2014) Pathologist [facility] HIV Screening abstracted Result [facility] Provider HEALTH MAINTENANCE Final Result * Hepatitis C Screening (09/09/2014) Pathologist [facility] Hepatitis C Screening abstracted Result [facility] Historical Provider HEALTH MAINTENANCE Final Result from Last 3 Months or Most Recently Relevant to Health Maintenance Insurance [facility] Care Teams 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
== END 2025-04-30 13:52 | disposition home or self-care (01) ==
LOC: HO.HSMS 12:52
PROVIDERS: PCP Internal Medicine; Visit Provider Nurse Practitioner Family
DX: G43.109 Migraine with aura, not intractable, without status migrainosus (principal); M54.2 Cervicalgia
CPT/HCPCS: 99214